=== PATIENT | male | born 1945 | race Caucasian/White ===

== ENCOUNTER → 2017-08-12 | Outpatient (CLI) | payer MEDICARE ==
--- NOTE | 2017-08-12 21:46 | CONS ---
CONSULTATION DATE OF SERVICE: 08/12/2017 HISTORY: A 72-year-old gentleman has been evaluated in the sleep center for possible obstructive sleep apnea-hypopnea syndrome. HISTORY OF PRESENT ILLNESS: Sleep wake evaluation. Patient's usual sleep schedule is from around 10 p.m. until 6 a.m. basically 7 days a week, usually no problem with falling asleep, although he has TV set in bedroom. He prefers to sleep on the stomach position. He sometimes wakes up around 4 a.m. and sometimes needs to go to bathroom. According to his , he snores and sometimes there is possibly episodes of stopped breathing during the sleep when she cannot hear while he is breathing. Positive history of restless legs. During the day he sometimes may feel sleepy. [place] Sleepiness Scale is 7. He has difficulties to pay attention, problems with memory, concentration, sexual dysfunction. PAST MEDICAL HISTORY: Positive for hypertension, hyperlipidemia, coronary artery disease. PAST SURGICAL HISTORY: CABG in 1996, nasal polypectomy in 2014, cholecystectomy. MEDICATIONS: Crestor, metoprolol, losartan, baby aspirin, SOCIAL HISTORY: Negative for smoking. Alcohol consumption, practically none at the present time. FAMILY HISTORY: Hypertension, angina, heart problems, hyperlipidemia, stroke, arthritis, sinus headaches, snoring, acid reflux. REVIEW OF SYSTEMS: Sometimes swelling of legs. Sometimes tiredness during the day. PHYSICAL EXAM: GENERAL: Patient in no distress. VITAL SIGNS: BP 133/70, HR 58, RR 16, height 5 feet 5 inches, weight 193.6, BMI 32.1. Neck 16-3/4 inches in circumference. Temperature 97.0. Oxygen saturation room air 98%. HEENT: Oropharynx moderately to extremely low position of soft palate. ABDOMEN: Slightly obese. EXTREMITIES: Up to 1+ ankle edema. APPRENTICE EMBALMER Awake, alert, and oriented X3. Cranial nerves 2 to 7 intact. There is no fasciculation or atrophy. noted. No focal deficits observed. IMPRESSION: 1. Loud snoring, witnessed episodes of stopped breathing during the sleep, low position of soft palate, obstructive sleep apnea-hypopnea syndrome. 2. Coronary artery disease, status post coronary artery bypass grafting. 3. Hypertension. 4. Hyperlipidemia. 5. Obesity, body mass index 52.1. 6. Status post nasal polypectomy. 7. Status post cholecystectomy. PLAN: 1. Polysomnography for evaluation of patient's breathing during sleep. 2. CPAP/BiPAP titration if sleep study confirms obstructive sleep apnea-hypopnea syndrome. 3. Preferable position during sleep on the side. 4. No driving if patient feels any sleepiness. Patient is aware of civil and criminal liability for unsafe driving. 5. I will see patient for follow up visit to explain results of testing and following plan. Thank you very much for referring this patient for consultation. Tavon Ngo MD, PhD, FAASM Diplomat of [place] Board [employer] Specialties [place] Board of Internal Medicine Newspaper Editor Managing of [facility] [place] MMODL / IJN: [id number] /
== END | disposition home or self-care (01) ==
LOC: SLEEP 13:50
PROVIDERS: ATTEND Internal Medicine
DX: G47.33 Obstructive sleep apnea (adult) (pediatric) (principal); I25.10 Atherosclerotic heart disease of native coronary artery without angina pectoris; I10 Essential (primary) hypertension; E78.5 Hyperlipidemia, unspecified; E66.9 Obesity, unspecified; Z68.43 Body mass index [BMI] 50.0-59.9, adult; Z95.1 Presence of aortocoronary bypass graft; Z98.890 Other specified postprocedural states; Z90.49 Acquired absence of other specified parts of digestive tract
CPT/HCPCS: 99211

== ENCOUNTER → 2017-12-23 | Outpatient (CLI) | payer MEDICARE ==
--- NOTE | 2017-12-23 11:44 | SFUN ---
SLEEP CENTER FOLLOW UP NOTE DATE OF SERVICE: 12/23/2017 This 72-year-old gentleman has been followed in sleep center for treatment of complex obstructive and central sleep apnea-hypopnea syndrome. Recently patient had polysomnogram which showed severe obstructive and central sleep apnea-hypopnea syndrome with apnea-hypopnea index 72. Then patient underwent CPAP and BiPAP titration, which was not very successful on CPAP and on BiPAP, patient continued to have abnormalities of respiration. I ordered for him BiPAP unit with a pressure support of 4 and range of pressure minimal expiratory pressure of 5 and maximal inspiratory pressure of 15. Today the patient came for follow-up visit. I checked his BiPAP unit. Patient using equipment every night 29/30 nights for more than 4 hours with average usage 6.1 hours. Pressure in the machine averaged 13.6/9.6 cm of water. Leak is 26 L/minute, which is borderline but apnea-hypopnea index reading from the machine quite high 28.6 and 22.3 times as related to central apneas. According to patient's , he does not snore with the machine, but according to patient, he does not feel significant difference while started to use his BiPAP. [place] Sleepiness Scale today is 8, which is normal. PHYSICAL EXAMINATION: During physical exam, patient in no distress. VITAL SIGNS: BP 140/71, HR 51, RR 14, weight 191.2, temp 97.6, oxygen saturation room air 98%. HEENT: PERRLA, EOMI. Oropharynx low position of soft palate. midline. NECK: Supple, no JVD. Thyroid is not palpable. LUNGS: Clear to percussion and to auscultation. Good air exchange. No wheezing or rhonchi. HEART: S1, S2 regular. No murmurs, gallops, or rubs. ABDOMEN: Obese. EXTREMITIES: No clubbing or cyanosis. ASSISTANT MANAGER OF OPERATIONS: Awake, alert, and oriented X3. Cranial nerves 2 to 7 intact. There is no fasciculation or atrophy. noted. No focal deficits observed. IMPRESSION: 1. 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 The patient demonstrated good compliance with BiPAP treatment. No snoring on BiPAP, but he continued to have mostly central apneas while using his BiPAP. Total apnea-hypopnea index improved about 2 times better than during diagnostic sleep study, but still the patient has very significant abnormalities of breathing. 2. Coronary artery disease, status post CABG, status post recent stent insertion. 3. Hypertension. 4. Hyperlipidemia. 5. Status post cholecystectomy. 6. Polypectomy from the nose. 7. Obesity. PLAN: 1. Titration with BiPAP on ST mode with ventilator, but we have to check ejection fraction by echocardiogram before the test. 2. Losing weight. 3. Sleep hygiene with regular time in bed for at least 8 hours. 4. No driving if feeling any sleepiness. Thank you very much for allowing me to participate in management of your patient. Sincerely, Tavon Ngo MD, PhD, FAASM Diplomat of [place] Board [employer] Specialties [place] Board of Internal Medicine Account Resolution Specialist of [facility] [place] MMODL / ANGELAN: [id number] /
== END | disposition home or self-care (01) ==
LOC: SLEEP 09:53
PROVIDERS: ATTEND Internal Medicine
DX: G47.33 Obstructive sleep apnea (adult) (pediatric) (principal); G47.31 Primary central sleep apnea; I25.10 Atherosclerotic heart disease of native coronary artery without angina pectoris; I10 Essential (primary) hypertension; E78.5 Hyperlipidemia, unspecified; E66.9 Obesity, unspecified; Z90.49 Acquired absence of other specified parts of digestive tract; Z99.89 Dependence on other enabling machines and devices; Z95.1 Presence of aortocoronary bypass graft; Z98.890 Other specified postprocedural states

== ENCOUNTER → 2018-06-23 | Outpatient (CLI) | payer MEDICARE ==
--- NOTE | 2018-06-23 16:05 | PN ---
PROGRESS NOTE DATE OF SERVICE: 06/23/2018 This patient is a 72-year-old gentleman who has been followed in the sleep center for treatment of complex obstructive and central sleep apnea-hypopnea syndrome. Today is his first visit after receiving his new BiPAP machine with ST mode. The patient is able to use the machine every night without problems. No snoring with the machine. No significant sleepiness during the day. [place] Sleepiness Scale today is 7, which is normal. I checked his BiPAP ST unit. Pressure is 13/9 cm of water with a back-up rate of 12. Usage is 100% of the time for more than 4 hours, average usage 5.4 hours. Leak is 25 L/minute, which is borderline for the nasal pillow mask. Apnea-hypopnea index is 4.5, which is in within normal range. MEDICATIONS: 1. Rosuvastatin. 2. Baby aspirin. 3. Metoprolol. 4. Valsartan. 5. Plavix. PHYSICAL EXAMINATION: GENERAL: A pleasant patient in no distress. VITAL SIGNS: BP 164/80, HR 53, R RR 16, weight 194.4, temperature 98.2, oxygen saturation at room air 97%. HEENT: PERRLA, EOMI. Evaluation of oropharynx showed tongue protrudes midline. Extremely low position of soft palate. NECK: Supple. No JVD. Thyroid is not palpable. LUNGS: Clear to percussion and to auscultation. Good air exchange. No wheezing or rhonchi. HEART: S1, S2 regular. No murmurs, gallops or rubs. ABDOMEN: Obese. EXTREMITIES: No clubbing or cyanosis. FUNDING COORDINATOR: Awake, alert, and oriented X3. Cranial nerves 2 to 7 intact. There is no fasciculation or atrophy. noted. No focal deficits observed. IMPRESSION: 1. Complex sleep apnea-hypopnea syndrome, controlled with BiPAP 13/9 cm of water in ST mode. Patient demonstrated 100% compliance with treatment, benefitting from treatment. 2. Coronary artery disease, status post recent stent insertions. 3. Hypertension. 4. Hyperlipidemia. 5. Status post cholecystectomy. 6. Status post polypectomy from the nose. 7. Obesity. PLAN: 1. Patient will continue to use BiPAP equipment in ST mode every night for the whole night. 2. Watching and losing weight. 3. Sleep hygiene with regular time in bed for at least 8 hours. 4. No driving if feeling any sleepiness. 5. Patient was fitted with a different type of nasal mask, DreamWear. We think possibly he will try to use a different mask. Thank you very much for allowing me to participate in the management of your patient. Sincerely, Tavon Ngo MD, PhD, FAASM Diplomat of [place] [employer] Specialties [employer] Board of Internal Medicine Assistant Athletic Trainer of [facility] [place] MMODL / ANGELAN: [id number] /
== END | disposition home or self-care (01) ==
LOC: SLEEP 13:46
PROVIDERS: ATTEND Internal Medicine
DX: G47.33 Obstructive sleep apnea (adult) (pediatric) (principal); G47.31 Primary central sleep apnea; E66.9 Obesity, unspecified; I25.10 Atherosclerotic heart disease of native coronary artery without angina pectoris; I10 Essential (primary) hypertension; E78.5 Hyperlipidemia, unspecified; Z99.89 Dependence on other enabling machines and devices; Z79.82 Long term (current) use of aspirin; Z79.02 Long term (current) use of antithrombotics/antiplatelets; Z79.899 Other long term (current) drug therapy; Z95.5 Presence of coronary angioplasty implant and graft; Z90.49 Acquired absence of other specified parts of digestive tract; Z98.890 Other specified postprocedural states

== ENCOUNTER → 2019-06-22 | Outpatient (CLI) | payer MEDICARE ==
--- NOTE | 2019-06-22 11:50 | SFUN ---
SLEEP CENTER FOLLOW UP NOTE DATE OF SERVICE: 06/22/2019. This 73-year-old gentleman has been followed in sleep center for treatment of complex sleep apnea-hypopnea syndrome. The patient continued to use his BiPAP ST mode equipment every night for the whole night. Sometimes has problems because his mask goes out. He is using a nasal pillow mask. [place] Sleepiness Scale today is 6, which is normal range. I checked his BiPAP unit. BiPAP pressure 13/9, backup rate on ST mode is 12. Usage is 29 out of 30 nights and 28 out of 30 nights more than 4 hours with average usage 6.2 hours per night. Leak is 26 L/minute. Apnea-hypopnea index 2.0, which is absolutely normal. MEDICATIONS: Metoprolol, rosuvastatin, baby aspirin, valsartan, Plavix. PHYSICAL EXAMINATION: During physical exam, patient in no distress. VITAL SIGNS: BP 132/78, HR 56, RR 16, height 5 feet 5 inches, weight 192, which is 2 pounds less than during last visit, temperature 97.7, oxygen saturation at room air 98%. HEENT: PERRLA, EOMI. Oropharynx extremely low position of soft palate, Mallampati 4. NECK: Supple, no JVD. Thyroid is not palpable. LUNGS: Clear to percussion and to auscultation. Good air exchange. No wheezing or rhonchi. HEART: S1, S2 regular. No murmurs, gallops, or rubs. ABDOMEN: Slightly obese. EXTREMITIES: No clubbing or cyanosis. INSOLE BEVELER: Awake, alert, and oriented X3. Cranial nerves 2 to 7 intact. There is no fasciculation or atrophy. noted. No focal deficits observed. IMPRESSION: 1. Complex sleep apnea-hypopnea syndrome on control with BiPAP at 13/9 cm of water with ST more backup rate 12. Patient demonstrated great compliance with treatment, benefitting from treatment. 2. Hypertension. 3. Coronary artery disease, status post stent insertions. 4. Hyperlipidemia. 5. Status post cholecystectomy. 6. Status post polypectomy from the nose. 7. Mild obesity. PLAN: 1. Patient will continue to use BiPAP ST mode every night for the whole night. 2. Watching and losing weight. 3. Sleep hygiene with regular time in bed for at least 7-1/2 hours. 4. We discussed with the patient how to adjust nasal pillow mask. 5. No driving if feeling any sleepiness. 6. Follow-up visit in 1 year or earlier if patient has any problems. Thank you very much for allowing me to participate in management of your patient. Sincerely, Tavon Ngo MD, PhD, FAASM Diplomat of [place] [employer] Specialties [place] Board of Internal Medicine Heel Stainer of [facility] [place] MMODL / ANGELAN: [phone] /
== END | disposition home or self-care (01) ==
LOC: SLEEP 10:18
PROVIDERS: ATTEND Internal Medicine
DX: G47.33 Obstructive sleep apnea (adult) (pediatric) (principal); I10 Essential (primary) hypertension; I25.10 Atherosclerotic heart disease of native coronary artery without angina pectoris; E78.5 Hyperlipidemia, unspecified; E66.9 Obesity, unspecified; Z90.49 Acquired absence of other specified parts of digestive tract; Z98.890 Other specified postprocedural states; Z99.89 Dependence on other enabling machines and devices; Z79.82 Long term (current) use of aspirin; Z79.899 Other long term (current) drug therapy; Z79.01 Long term (current) use of anticoagulants

== ENCOUNTER → 2020-07-24 | Outpatient (CLI) | payer MEDICARE ==
--- NOTE | 2020-07-24 16:57 | SFUN ---
SLEEP CENTER FOLLOW UP NOTE DATE OF SERVICE: 07/24/2020 A 75-year-old gentleman who has been followed in the Sleep Center for treatment of obstructive and central sleep apnea-hypopnea syndrome. Patient continued to use BiPAP ST mode equipment every night, getting supplies in time. No problem with usage of the machine. [place] Sleepiness Scale today is 7. I checked his BiPAP unit, pressure 13/[address] mode, respiratory rate 12, usage 26/30 nights for more than 4 hours, leak 28 L/minute. Apnea-hypopnea index only 2.7, which is absolutely normal. MEDICATIONS: Aspirin 81 mg once daily, metoprolol 50 mg once daily. Rosuvastatin 10 mg once daily. Losartan hydrochlorothiazide 100-12.5 mg once daily. PHYSICAL EXAM: gentleman without distress, BP 176/98, HR 58, RR 15, BP 148/91, left arm. Height 5 foot 5-1/2, weight 192 pounds, BMI 31.4, temperature 97.7, oxygen saturation at room air 97%. OROPHARYNX: Extremely low position of soft palate. Mallampati 4. ABDOMEN: Slightly obese. NECK: Supple, no JVD. Thyroid is not palpable. LUNGS: Clear to percussion and to auscultation. Good air exchange. No wheezing or rhonchi. HEART: S1, S2 regular. No murmurs, gallops, or rubs. EXTREMITIES: No clubbing or cyanosis. TISSUE RECOVERY TECHNICIAN: Awake, alert, and oriented X3. Cranial nerves 2 to 7 intact. There is no fasciculation or atrophy. noted. No focal deficits observed. IMPRESSION: 1. Obstructive and central sleep apnea-hypopnea syndrome on control with BiPAP in ST mode. 2. Hypertension. 3. Coronary artery disease, status post stent insertion. 4. Hyperlipidemia. 5. Status post cholecystectomy. 6. Status post polypectomy from the nose. 7. Status post right knee surgery. PLAN: 1. Patient will continue to use PAP equipment every night for the whole night. 2. Sleep hygiene with regular time in bed for at least 7-1/2 to 8 hours. 3. Precautions related to driving. No driving if feeling sleepiness. 4. I will maintain all necessary prescription for PAP supplies including mask, tube, filters. 5. Watching weight. 6. No driving if feeling sleepiness. 7. Followup visit in 6 months or earlier if patient has any problems. Thank you very much for allowing me to participate in the management of your patient. Sincerely, Tavon Ngo MD, PhD, FAASM Diplomat of [place] Board of Medical Specialties [employer] Board of Internal Medicine Livestock Broker of [facility] [place] HALIMA / WENDY: [id number] /
== END | disposition home or self-care (01) ==
LOC: SLEEP 09:45
PROVIDERS: ATTEND Internal Medicine
DX: G47.33 Obstructive sleep apnea (adult) (pediatric) (principal); I10 Essential (primary) hypertension; I25.10 Atherosclerotic heart disease of native coronary artery without angina pectoris; E78.5 Hyperlipidemia, unspecified; Z90.49 Acquired absence of other specified parts of digestive tract; Z99.89 Dependence on other enabling machines and devices; Z98.890 Other specified postprocedural states

== ENCOUNTER → 2021-01-09 | Outpatient (CLI) | payer MEDICARE ==
--- NOTE | 2021-01-09 18:20 | SFUN ---
SLEEP CENTER FOLLOW UP NOTE DATE OF SERVICE: 01/09/2021 This 75-year-old gentleman has been followed in Sleep Center for treatment of obstructive sleep apnea-hypopnea syndrome. The patient is using BiPAP ST mode equipment and he continues to use this equipment every night. He recently received the wrong nasal pillow mask, which he was not able to use, and has to use the old-style nasal pillows. I checked masks. He likes Davis FX and he received AirFit P10. I checked his BiPAP unit. BiPAP pressure is 13/9, back-up rate 12, usage 30/30 nights for more than 4 hours, average 6.2 hours per night. Leak is 23 L/minute, which is borderline. Apnea-hypopnea index is 3.0, which is normal range. [place] Sleepiness Scale today is 7, which is normal. MEDICATIONS: 1. Aspirin 81 mg once a day. 2. Metoprolol 50 mg once a day. 3. Rosuvastatin 10 mg once a day. 4. Losartan/hydrochlorothiazide 100/12.5 mg once a day. PHYSICAL EXAMINATION: GENERAL: A pleasant patient in no distress. VITAL SIGNS: BP 143/76, HR 47, RR 15, height 5 feet 6 inches, weight 191.6, temperature 97.5, oxygen saturation at room air 92%, body mass index 30.8. HEENT: PERRLA, EOMI. Evaluation of oropharynx showed tongue protrudes midline. Extremely low position of soft palate. Mallampati IV. NECK: Supple. No JVD. Thyroid is not palpable. LUNGS: Clear to percussion and to auscultation. Good air exchange. No wheezing or rhonchi. HEART: S1, S2 regular. No murmurs, gallops or rubs. ABDOMEN: Slightly obese. EXTREMITIES: No clubbing or cyanosis. BILLET CUTTER: Awake, alert, and oriented X3. Cranial nerves 2 to 7 intact. There is no fasciculation or atrophy. noted. No focal deficits observed. IMPRESSION: 1. Obstructive and central sleep apnea-hypopnea syndrome, under control with BiPAP in ST mode. Patient demonstrated 100% compliance with treatment, benefitting from treatment. 2. Hypertension. 3. Coronary artery disease, status post stent insertion. 4. Hyperlipidemia. 5. Status post cholecystectomy. 6. Status post polypectomy from the nose. 7. Status post right knee surgery. PLAN: 1. Prescription for all necessary CPAP supplies, including Davis FX medium-sized nasal pillow mask, tube, filters. 2. Patient will continue to use PAP equipment every night for the whole night. 3. Sleep hygiene with regular time in bed for at least 7-1/2 to 8 hours. 4. Precautions related to driving. No driving if feeling sleepiness. 5. I will maintain all necessary prescription for PAP supplies including mask, tube, filters. 6. Watching weight. 7. Follow-up visit in 6 months or earlier if patient has any problems. Thank you very much for allowing me to participate in the management of your patient. Sincerely, Tavon Ngo MD, PhD, FAASM Diplomat of [place] Board of Medical Specialties [place] Board of Internal Medicine Software Development Intern of [facility] [place] HALIMA / WENDY: [id number] /
== END | disposition home or self-care (01) ==
LOC: SLEEP 10:41
PROVIDERS: ATTEND Internal Medicine
DX: G47.33 Obstructive sleep apnea (adult) (pediatric) (principal); I10 Essential (primary) hypertension; I25.10 Atherosclerotic heart disease of native coronary artery without angina pectoris; E78.5 Hyperlipidemia, unspecified; Z90.49 Acquired absence of other specified parts of digestive tract; Z98.890 Other specified postprocedural states; Z95.5 Presence of coronary angioplasty implant and graft; Z79.82 Long term (current) use of aspirin; Z79.899 Other long term (current) drug therapy

== ENCOUNTER → 2021-07-24 | Outpatient (CLI) | payer MEDICARE ==
--- NOTE | 2021-07-24 12:58 | SFUN ---
SLEEP CENTER FOLLOW UP NOTE DATE OF SERVICE: 07/24/2021 76-year-old gentleman has been followed in Sleep Center for treatment of obstructive sleep apnea-hypopnea syndrome. The patient continues to use his BiPAP ST mode equipment every night, getting his supplies in time, using an AirFit P10 nasal pillow mask and he likes it. [place] Sleepiness Scale today is 7 which is in normal range. I checked BiPAP unit pressure is 13/9 cm of water. It is in ST mode with respiratory rate 12 for last month. Patient using 20/30 nights, average 6.1 hours because he hunted and did not take machine with him. I checked it also for 6 months, usage was 163/180 nights for more than 4 hours, which is good compliance. Leak is 22 L/minute, which is acceptable. Apnea-hypopnea index is 2.3 which is normal range. MEDICATIONS: Losartan hydrochlorothiazide 125 mg once a day, metoprolol 50 mg once a day, aspirin 81 mg once a day, Crestor 10 mg once a day. PHYSICAL EXAMINATION: GENERAL: Patient in no distress. BP 152/77, HR 70, RR 15, height 5 feet 6 inches, weight 188, BMI 30.3, temperature 97.5, oxygen saturation at room air 98%. The patient lost 3 pounds since previous visit. Oropharynx extremely low position of soft palate, Mallampati 4. NECK: Supple, no JVD. Thyroid is not palpable. LUNGS: Clear to percussion and to auscultation. Good air exchange. No wheezing or rhonchi. HEART: S1, S2 regular. No murmurs, gallops, or rubs. ABDOMEN: Obese. Soft and nontender. Bowel sounds are present. No organomegaly appreciated. EXTREMITIES: No clubbing or cyanosis. WATER VALVE REPAIRER: Awake, alert, and oriented X3. Cranial nerves 2 to 7 intact. There is no fasciculation or atrophy. noted. No focal deficits observed. IMPRESSION: 1. Obstructive and central sleep apnea-hypopnea syndrome. Respiration is normal on BiPAP in ST mode. The patient demonstrated good compliance with treatment. 2. Coronary artery disease, status post stent insertion. 3. Hypertension. 4. Hyperlipidemia. 5. Status post cholecystectomy. 6. Status post polypectomy from the nose. 7. Status post right knee surgery. PLAN: 1. Patient will continue to use PAP equipment every night for the whole night. 2. Sleep hygiene with regular time in bed for at least 7-1/2 to 8 hours. 3. Precautions related to driving. No driving if feeling sleepiness. 4. I will maintain all necessary prescription for PAP supplies including mask, tube, filters. 5. Watching weight. 6. Follow-up visit in 6 months or earlier if patient has any problems. Thank you very much for allowing me to participate in the management of your patient. Sincerely, Tavon Ngo MD, PhD, FAASM Diplomat of [place] Board of Medical Specialties Sleep Medicine Board of [place] Board of Internal Medicine Gluing Machine Operator Electronic of [facility] [place] MMODL / ANGELAN: [id number] /
== END | disposition home or self-care (01) ==
LOC: SLEEP 11:01
PROVIDERS: ATTEND Internal Medicine
DX: G47.33 Obstructive sleep apnea (adult) (pediatric) (principal); Z95.5 Presence of coronary angioplasty implant and graft; I10 Essential (primary) hypertension; E78.5 Hyperlipidemia, unspecified; Z96.651 Presence of right artificial knee joint

== ENCOUNTER → 2022-07-23 | Outpatient (CLI) | payer MEDICARE ==
--- NOTE | 2022-07-23 11:50 | P.PN ---
Subjective DATE: 07/23/2022 FOLLOW UP VISIT. Patient with obstructive sleep apnea hypopnea syndrome return to sleep center for follow-up visit. Information from previous visit have been reviewed. Patient is using BPAP equipment every night for the whole night, getting BPAP supplies in time. The patient does not have significant problems with the mask, BPAP unit and humidification. [place] sleepiness scale is 7, which is normal. I checked information from BPAP unit. BPAP ST mode unit pressure 13/9 cm H2O. Air filter is in bed shape, needs to be replaced immediately. Usage is 90 % for more then 4 hours, average 5.8 hours per night. Leak is 24 l/m, which is in acceptable range. Apnea Hypopnea Index is 2.5, which is normal. MEDICATIONS:1. Crestor 10 mg once a day 2. Aspirin 81 mg once a day 3. Losartan/hydrochlorothiazide 100/25 mg once a day 4. Metoprolol 50 mg once a day During physical exam: GENERAL: A pleasant patient without any distress. VITAL SIGNS: BP 119/78, HR 57, RR 16 , weight 188.6, temperature 97.0, oxygen saturation at room air 96% % . HEENT: PERRLA, EOMI.low position of soft palate, Mallapati 4 . NECK: Supple. No JVD. LUNGS: Clear to percussion and to auscultation. Good air exchange. No wheezing o r rhonchi. HEART: S1, S2 regular. ABDOMEN: Soft and nontender.[] EXTREMITIES: No clubbing or cyanosis. COMMERCIAL CREDIT HEAD: Awake, alert, and oriented x3. No focal deficit. Impressions: 1. Obstructive sleep apnea-hypopnea syndrome. Patient demonstrated great compliance with treatment, benefiting from treatment. 2. Coronary artery disease, status post stent insertion. 3. Hypertension. 4. Hyperlipidemia. 5. Status post cholecystectomy. 6. Status post polypectomy from the nose. 7. Status post a right knee surgery. Plan: 1. Continue using PAP equipment every night for the whole night. 2. To change air filter at least 1-2 times per month. To change air filter immediately. 3. PAP unit should stay lower then position of the head. 4. Advised patient to remove all remaining water from humidifier canister daily and make it dry after each usage. Refill canister with fresh distilled water before each usage. 5. Sleep hygiene with regular time in bed for at least 8 hours. 6. Precautions related to driving. No driving if feel any sleepiness. 7. I will maintain prescription for PAP supplies including mask, tube, filters. 8. Follow up visit in 6 months or earlier if patient has any problems. 9. Watching weight. Thank you very much for allowing me to participate in the management of your patient. Tavon Ngo MD, PhD, FAASM. Diplomat of [place] Board [employer] Medicine, Sleep Medicine Board by [place] Board of Internal Medicine Parish Visitor of [facility] [place]
== END ==
LOC: SLEEP 11:04
PROVIDERS: ATTEND Internal Medicine
DX: G47.33 Obstructive sleep apnea (adult) (pediatric) (principal); I25.10 Atherosclerotic heart disease of native coronary artery without angina pectoris; I10 Essential (primary) hypertension; E78.5 Hyperlipidemia, unspecified; Z99.89 Dependence on other enabling machines and devices; Z79.899 Other long term (current) drug therapy; Z79.82 Long term (current) use of aspirin; Z96.651 Presence of right artificial knee joint; Z90.49 Acquired absence of other specified parts of digestive tract; Z95.5 Presence of coronary angioplasty implant and graft; Z86.69 Personal history of other diseases of the nervous system and sense organs
CPT/HCPCS: 99212

== ENCOUNTER → 2023-07-15 | Outpatient (CLI) | payer MEDICARE ==
--- NOTE | 2023-07-15 12:03 | US ---
EXAMINATION TYPE: US venous doppler duplex LE RT DATE OF EXAM: 07/15/2023 11:43 AM COMPARISON: NONE CLINICAL INDICATION: Male, 78 years old with history of M79.661 PAIN IN RIGHT LOWER LEG; rt leg pain SIDE PERFORMED: Right TECHNIQUE: The lower extremity deep venous system is examined utilizing real time linear array sonog rafiq with graded compression, doppler sonography and color-flow sonography. VESSELS IMAGED: Common Femoral Vein Deep Femoral Vein Greater Saphenous Vein * Femoral Vein Popliteal Vein Small Saphenous Vein * Proximal Calf Veins (* superficial vessels) Right Leg: Negative for DVT rt bakers cyst medial behind knee measuring 4.2 x 1.4 x 4.1 cm. IMPRESSION: Grayscale, color doppler, spectral doppler imaging performed of the deep veins of the lo wer extremities. There is normal flow, compressibility, vascular waveforms.
== END | disposition home or self-care (01) ==
LOC: RADUSWWP 11:23
PROVIDERS: ATTEND Family Medicine
DX: M79.661 Pain in right lower leg (principal)

== ENCOUNTER → 2023-07-15 | Outpatient (CLI) | payer MEDICARE ==
--- NOTE | 2023-07-15 14:15 | P.PN ---
Subjective DATE: 07/15/2023 FOLLOW UP VISIT. Patient with obstructive sleep apnea hypopnea syndrome return to sleep center for follow-up visit. Information from previous visit have been reviewed. Patient is using PAP equipment every night for the whole night, getting PAP supplies in time, but his BiPAP ST unit stopped working several weeks ago. The patient did not have significant problems with the mask, pressure and humidification. Leslie sleepiness scale is 6. MEDICATIONS:1. Losartan/hydrochlorothiazide 100-25 mg once a day 2. Metoprolol 50 mg once a day 3. Aspirin 81 mg once a day 4. Crestor 10 mg once a day During physical exam: GENERAL: A pleasant patient without any distress. VITAL SIGNS: BP 154/85, HR 69, RR 12 , weight 186.6, temperature 97.2, oxygen saturation at room air 97 % . HEENT: PERRLA, EOMI.low position of soft palate, Mallapati 4 . NECK: Supple. No JVD. LUNGS: Clear to percussion and to auscultation. Good air exchange. No wheezing or rhonchi. HEART: S1, S2 regular. ABDOMEN: Soft and nontender. Slightly obese EXTREMITIES: No clubbing or cyanosis. CARDIOLOGY MANAGER: Awake, alert, and oriented x3. No focal deficit. Impressions: 1. Obstructive and central sleep apnea-hypopnea syndrome. BiPAP ST unit do esn't work. 2. Hypertension. 3. Coronary artery disease, status post stent insertion. 4. Hyperlipidemia. 5. Status post polypectomy from the nose. 6. Status post right knee surgery. 7. Status post cholecystectomy. 8. Mild obesity, BMI 30.7. Plan: 1. Prescription to replace BiPAP ST unit with the pressure 13/9 cm of water and the respiratory rate 12. Patient should use PAP equipment every night for the whole night. 2. To change air filter at least 1-2 times per month. 3. PAP unit should stay lower then position of the head. 4. Advised patient to remove all remaining water from humidifier canister daily and make it dry after each usage. Refill canister with fresh distilled water before each usage. 5. Sleep hygiene with regular time in bed for at least 8 hours. 6. Precautions related to driving. No driving if feel any sleepiness. 7. I will maintain prescription for PAP supplies including mask, tube, filters. 8. Watching and losing weight. 9. Follow up visit in 30-90 days off the patient will start to use new BiPAP ST unit to check compliance, clinical response on treatment and make any necessary adjustments related to mask fitting pressure and humidification. Thank you very much for allowing me to participate in the management of your patient. Tavon Ngo MD, PhD, FAASM. Diplomat of [place] [employer], Sleep Medicine Board by [employer] [place] C[employer]ion Skiving Machine Operator of [facility] [place]
== END ==
LOC: 3 N SLEEP 13:26
PROVIDERS: ATTEND Internal Medicine
DX: G47.33 Obstructive sleep apnea (adult) (pediatric) (principal); G47.31 Primary central sleep apnea; E66.9 Obesity, unspecified; E78.5 Hyperlipidemia, unspecified; I10 Essential (primary) hypertension; I25.10 Atherosclerotic heart disease of native coronary artery without angina pectoris; Z68.30 Body mass index [BMI] 30.0-30.9, adult; Z90.49 Acquired absence of other specified parts of digestive tract; Z98.890 Other specified postprocedural states; Z95.5 Presence of coronary angioplasty implant and graft; Z79.899 Other long term (current) drug therapy; Z79.82 Long term (current) use of aspirin
CPT/HCPCS: 99212

== ENCOUNTER → 2023-09-08 | Outpatient (CLI) | payer MEDICARE ==
--- NOTE | 2023-09-08 11:49 | XR ---
EXAMINATION TYPE: XR chest 2V DATE OF EXAM: 09/08/2023 10:42 AM CLINICAL INDICATION:Male, 78 years old with history of Z18.10 MRI CLEARANCE; [facility] COMPARISON: Chest radiographs from 09/08/2023 TECHNIQUE: XR chest 2V Frontal and lateral views of the chest. FINDINGS: Lungs/Pleura: There is no evidence of pleural effusion, focal consolidation, or pneumothorax. Pulmonary vascularity: Unremarkable. Heart/mediastinum: Cardiomediastinal silhouette is unremarkable. Musculoskeletal: No acute osseous pathology. Midline sternotomy wires are noted. Other findings: None IMPRESSION: No acute cardiopulmonary disease/process.
== END | disposition home or self-care (01) ==
LOC: RADXRMAIN 10:25
PROVIDERS: ATTEND Physical Medicine & Rehabilitation
DX: Z18.10 Retained metal fragments, unspecified (principal); M41.26 Other idiopathic scoliosis, lumbar region; M16.0 Bilateral primary osteoarthritis of hip; M47.817 Spondylosis without myelopathy or radiculopathy, lumbosacral region; M48.062 Spinal stenosis, lumbar region with neurogenic claudication; M43.16 Spondylolisthesis, lumbar region; M51.37 Other intervertebral disc degeneration, lumbosacral region
CPT/HCPCS: 71046

== ENCOUNTER → 2024-02-09 | Outpatient (CLI) | payer MEDICARE ==
[2024-02-09 11:21] VITALS: BP 132/78; PULSE 61; RESP 14; TEMP 97.7
--- NOTE | 2024-02-09 12:16 | P.PROGSL ---
Subjective DATE: 02/09/2024 FOLLOW UP VISIT. Patient with obstructive sleep apnea hypopnea syndrome return to sleep center for follow-up visit. Information from previous visit have been reviewed. Patient is using PAP equipment every night for the whole night, getting PAP supplies in time. The patient does not have significant problems with the mask, PAP unit and humidification. [place] sleepiness scale is 4. I checked information from PAP unit. BPAP ST unit pressure 13/9 with respiratory rate 12 cm H2O. Usage is 100% for more then 4 hours, average 4.9 hours per night. Leak is 20 l/m, which is in acceptable range. Apnea Hypopnea Index is 1.5, which is normal. MEDICATIONS: Please see below During physical exam: GENERAL: A pleasant patient without any distress. VITAL SIGNS: Please see below. HEENT: PERRLA, EOMI.low position of soft palate, Mallapati 4 . NECK: Supple. No JVD. LUNGS: Clear to percussion and to auscultation. Good air exchange. No wheezing or rhonchi. HEART: S1, S2 regular. ABDOMEN: Soft and nontender.[] EXTREMITIES: No clubbing or cyanosis. SCOUT PROFESSIONAL SPORTS: Awake, alert, and oriented x3. No focal deficit. Impressions: 1. Obstructive sleep apnea-hypopnea syndrome. Patient demonstrated great compliance with treatment, benefiting from treatment. 2. Coronary artery disease, status post stent insertion. 3. Hypertension. 4. Hyperlipidemia. 5. Status post polypectomy from the nose. 6. Status post right knee surgery. 7. Status post cholecystectomy. 8. Mild obesity, BMI 30.7. Plan: 1. Continue using PAP equipment every night for the whole night. 2. To change air filter at least 1-2 times per month. 3. PAP unit should stay lower then position of the head. 4. Advised patient to remove all remaining water from humidifier canister daily and make it dry after each usage. Refill canister with fresh distilled water before each usage. 5. Sleep hygiene with regular time in bed for at least 8 hours. 6. Precautions related to driving. No driving if feel any sleepiness. 7. I will maintain prescription for PAP supplies including mask, tube, filters. 8. Follow up visit in 6 months or earlier if patient has any problems. 9. Watching weight. Thank you very much for allowing me to participate in the management of your patient. Tavon Ngo MD, PhD, FAASM. Diplomat of [place] [employer], Sleep Medicine Board by [place] [employer] Associate Media Director of [facility] [place] Objective - Vital Signs Vital Signs: Vital Signs Temp 97.7 F 02/09/24 11:20 Pulse 61 02/09/24 11:20 Resp 14 02/09/24 11:20 BP 132/78 02/09/24 11:20 Pulse Ox 97 02/09/24 11:20 FiO2 Intake & Output 02/08/24 02/09/24 02/09/24 18:59 06:59 18:59 Weight 82.724 kg Home Medications: Home Medications Medication Instructions Recorded Confirmed Type Aspirin 81 mg PO DAILY 02/09/24 02/09/24 History Losartan/Hydrochlorothiazide 1 tab PO DAILY 02/09/24 02/09/24 History [Losartan-Hctz 100-25 mg Tab] Metoprolol Succinate [Toprol XL] 50 mg PO DAILY 02/09/24 02/09/24 History Rosuvastatin [Crestor] 10 mg PO DAILY 02/09/24 02/09/24 History
== END ==
LOC: 3 N SLEEP 10:54
PROVIDERS: ATTEND Internal Medicine
DX: G47.33 Obstructive sleep apnea (adult) (pediatric) (principal); I25.10 Atherosclerotic heart disease of native coronary artery without angina pectoris; I10 Essential (primary) hypertension; E78.5 Hyperlipidemia, unspecified; E66.9 Obesity, unspecified; Z99.89 Dependence on other enabling machines and devices; Z68.30 Body mass index [BMI] 30.0-30.9, adult; Z98.890 Other specified postprocedural states; Z90.49 Acquired absence of other specified parts of digestive tract; Z95.5 Presence of coronary angioplasty implant and graft; Z79.899 Other long term (current) drug therapy
CPT/HCPCS: 99212

== ENCOUNTER → 2024-10-11 | Outpatient (CLI) | payer MEDICARE ==
[2024-10-11 10:55] VITALS: BP 183/84; PULSE 52; RESP 16; TEMP 97.3
--- NOTE | 2024-10-11 11:48 | P.PROGSL ---
Subjective DATE: 10/11/2024 FOLLOW UP VISIT. Patient with obstructive sleep apnea hypopnea syndrome return to sleep center for follow-up visit. Information from previous visit have been reviewed. Patient is using PAP equipment every night for the whole night, getting PAP supplies in time. The patient does not have significant problems with the mask, PAP unit and humidification. [place] sleepiness scale is 9, which is in normal range. I checked information from BPAP ST unit. BPAP ST unit is old, pressure 13/9 cm H2O with respiratory rate support 12. Usage is 100% for more then 4 hours, average 5 hours per night. Leak is 7 l/m, which is in good range. Apnea Hypopnea Index is 7.8, which is borderline. MEDICATIONS have been reviewed, please see below. During physical exam: GENERAL: A pleasant patient without any distress. VITAL SIGNS: Please see below, weight is 195 lbs. HEENT: PERRLA, EOMI.low position of soft palate, Mallapati 4 . NECK: Supple. No JVD. LUNGS: Clear to percussion and to auscultation. Good air exchange. No wheezing or rhonchi. HEART: S1, S2 regular. ABDOMEN: Soft and nontender.[] EXTREMITIES: No clubbing or cyanosis. AUTOMOBILE RADIO REPAIRER: Awake, alert, and oriented x3. No focal deficit. Impressions: 1. Obstructive and central sleep apnea-hypopnea syndrome. Patient demonstrated great compliance with treatment, benefiting from treatment. BiPAP ST mode unit is old. 2. Coronary artery disease, status post stent insertion. 3. Hypertension. 4. Hyperlipidemia. 5. Status post polypectomy from the nose. 6. Status post right knee surgery. 7. Status post cholecystectomy. 8. Mild obesity, BMI 32.4. Plan: 1. Continue using BPAP ST mode equipment every night for the whole night. Prescription to replace BiPAP ST mode unit. 2. Sleep hygiene with regular time in bed for at least 7.5-8 hours 3. PAP unit should stay lower then position of the head. 4. Advised patient to remove all remaining water from humidifier canister daily and make it dry after each usage. Refill canister with fresh distilled water before each usage. 5. Watching weight. 6. Precautions related to driving. No driving if feel any sleepiness. 7. I will maintain prescription for PAP supplies including mask, tube, filters. 8. Follow up visit in 1-3 months after patient will get new BiPAP ST mode unit. Thank you very much for allowing me to participate in the management of your patient. Tavon Ngo MD, PhD, FAASM. Diplomat of [place] [employer], Sleep Medicine Board by [employer] [place] Operator of [facility] [place] Objective - Vital Signs Vital Signs: Vital Signs Temp 97.3 F L 10/11/24 10:49 Pulse 52 L 10/11/24 10:49 Resp 16 10/11/24 10:49 BP 183/84 10/11/24 10:49 Pulse Ox 99 10/11/24 10:49 FiO2 Intake & Output 10/10/24 10/11/24 10/11/24 18:59 06:59 18:59 Weight 88.451 kg Home Medications: Home Medications Medication Instructions Recorded Confirmed Type Aspirin 81 mg PO DAILY 02/09/24 10/11/24 History Losartan/Hydrochlorothiazide 1 tab PO DAILY 02/09/24 10/11/24 History [Losartan-Hctz 100-25 mg Tab] Metoprolol Succinate [Toprol XL] 50 mg PO DAILY 02/09/24 10/11/24 History Rosuvastatin [Crestor] 10 mg PO DAILY 02/09/24 10/11/24 History
== END ==
LOC: 3 N SLEEP 10:33
PROVIDERS: ATTEND Internal Medicine
DX: G47.33 Obstructive sleep apnea (adult) (pediatric) (principal); I25.10 Atherosclerotic heart disease of native coronary artery without angina pectoris; I10 Essential (primary) hypertension; E78.5 Hyperlipidemia, unspecified; E66.9 Obesity, unspecified; Z68.32 Body mass index [BMI] 32.0-32.9, adult; Z90.49 Acquired absence of other specified parts of digestive tract; Z98.890 Other specified postprocedural states
CPT/HCPCS: 99212

== ENCOUNTER → 2024-12-21 | Outpatient (CLI) | payer MEDICARE ==
[2024-12-21 11:45] VITALS: BP 138/76; PULSE 50; RESP 16; TEMP 97.2
--- NOTE | 2024-12-21 12:08 | P.PROGSL ---
Subjective DATE: 12/21/2024 FOLLOW UP VISIT. Patient with obstructive sleep apnea hypopnea syndrome return to sleep center for follow-up visit. Information from previous visit have been reviewed. Today is first visit after patient received new BiPAP ST unit. Patient is using PAP equipment every night for the whole night, getting PAP supplies in time. The patient does not have significant problems with the mask, PAP unit and humidification. [place]ent sleepiness scale is 7, which is normal. I checked information from PAP unit. BPAP ST unit pressure 13/9 cm [id number] respiratory rate 12 . Usage is 100% for more then 4 hours, average 5.5 hours per night. Leak is 9.3 l/m, which is in acceptable range. Apnea Hypopnea Index is 6.7, which is borderline. MEDICATIONS have been reviewed, please see below. During physical exam: GENERAL: A pleasant patient without any distress. VITAL SIGNS: Please see below, weight is 193 lbs. HEENT: PERRLA, EOMI.low position of soft palate, Mallapati 4 . NECK: Supple. No JVD. LUNGS: Clear to percussion and to auscultation. Good air exchange. No wheezing or rhonchi. HEART: S1, S2 regular. ABDOMEN: Soft and nontender.[] EXTREMITIES: No clubbing or cyanosis. SHORE WORKER: Awake, alert, and oriented x3. No focal deficit. Impressions: 1. Obstructive and central sleep apnea-hypopnea syndrome. Patient demonstrated great compliance with treatment, benefiting from treatment. 2. Coronary artery disease, status post stent insertion. 3. Hypertension. 4. Hyperlipidemia. 5. Status post polypectomy from the nose. 6. Status post right knee surgery. 7. Status post cholecystectomy. 8. Mild obesity, patient lost 2 pounds comparing with the previous visit. Plan: 1. Continue using PAP equipment every night for the whole night. 2. Sleep hygiene with regular time in bed for at least 7.5-8 hours 3. PAP unit should stay lower then position of the head. 4. Advised patient to remove all remaining water from humidifier canister daily and make it dry after each usage. Refill canister with fresh distilled water before each usage. 5. Watching weight. 6. Precautions related to driving. No driving if feel any sleepiness. 7. I will maintain prescription for PAP supplies including mask, tube, filters. 8. Follow up visit in 8 months or earlier if patient has any problems. Thank you very much for allowing me to participate in the management of your patient. Tavon Ngo MD, PhD, FAASM. Diplomat of [place] [employer], Sleep Medicine Board by [place] [employer] Mental Measurements Teacher of [facility] [place] Objective - Vital Signs Vital Signs: Vital Signs Temp 97.2 F L 12/21/24 11:44 Pulse 50 L 12/21/24 11:44 Resp 16 12/21/24 11:44 BP 138/76 12/21/24 11:44 Pulse Ox 96 12/21/24 11:44 FiO2 Home Medications: Home Medications Medication Instructions Recorded Confirmed Type Aspirin 81 mg PO DAILY 02/09/24 10/11/24 History Losartan/Hydrochlorothiazide 1 tab PO DAILY 02/09/24 10/11/24 History [Losartan-Hctz 100-25 mg Tab] Metoprolol Succinate [Toprol XL] 50 mg PO DAILY 02/09/24 10/11/24 History Rosuvastatin [Crestor] 10 mg PO DAILY 02/09/24 10/11/24 History
== END ==
LOC: 3 N SLEEP 11:26
PROVIDERS: ATTEND Internal Medicine
DX: G47.33 Obstructive sleep apnea (adult) (pediatric) (principal); I25.10 Atherosclerotic heart disease of native coronary artery without angina pectoris; I10 Essential (primary) hypertension; E78.5 Hyperlipidemia, unspecified; E66.9 Obesity, unspecified; Z98.890 Other specified postprocedural states; Z96.651 Presence of right artificial knee joint; Z95.5 Presence of coronary angioplasty implant and graft; Z90.49 Acquired absence of other specified parts of digestive tract
CPT/HCPCS: 99212